=== PATIENT | male | born 1970 ===

== ENCOUNTER 2017-04-07 21:32 | Observation (INO) | payer OTHER ==
[2017-04-07 21:47] VITALS: RESP 18
[2017-04-07 22:55] LABS: BASO # 0.1 K/uL (0.0-0.2); BASO % 0.8 % (0.0-2.0); EOS # 0.4 K/uL (0.0-0.7); EOS % 4.6 % (0.0-4.0); HEMOGLOBIN 14.8 g/dL (12.0-18.0); LYMPH # 2.2 K/uL (1.0-4.3); LYMPH % 29.5 % (20.0-40.0); MEAN CELL VOLUME 85.7 fl (80.0-94.0); MEAN CORPUSCULAR HEMOGLOBIN 29.4 pg (27.0-31.0); MEAN CORPUSCULAR HGB CONC 34.3 g/dL (33.0-37.0); MEAN PLATELET VOLUME 8.7 fl (7.2-11.7); MONO # 0.7 K/uL (0.0-0.8); MONO % 8.7 % (0.0-10.0); NEUT # 4.3 K/uL (1.8-7.0); NEUT % 56.4 % (50.0-75.0); NRBC % 0.4 % (0.0-0.0); RBC 5.03 Mil/uL (4.40-5.90); RED CELL DISTRIBUTION WIDTH 14.1 % (11.5-14.5); WHITE BLOOD COUNT 7.6 K/uL (4.8-10.8)
--- NOTE | 2017-04-07 23:05 | ED PDOC ---
HPI: Chest Pain Time Seen by Provider: 04/07/17 22:00 Chief Complaint (Nursing): Chest Pain Chief Complaint (Provider): Chest Pain History Per: Patient History/Exam Limitations: no limitations Onset/Duration Of Symptoms: Sudden Onset Current Symptoms Are (Timing): Better Quality: Other (constant) Associated Symptoms: Other (left arm pain) Additional Complaint(s): 47 y/o male presents to the ED complaining of chest pain that started suddenly about an hour ago while the patient was sitting. Pain is constant and is in the middle of the chest, associated with left arm pain. Patient notes that he had a similar episode once long time ago. Denies Shortness of breath, diarrhea, nausea , vomiting, fever, diaphoresis, palpitations, syncope, cough or any further medical complaints. PMD: Karsten Parkinson MD Past Medical History Reviewed: Historical Data, Nursing Documentation, Vital Signs Vital Signs: Last Vital Signs Temp 98.2 F 04/08/17 16:05 Pulse 67 04/08/17 16:05 Resp 18 04/08/17 16:05 BP 132/75 04/08/17 16:05 Pulse Ox 97 04/08/17 16:05 - Medical History PMH: No Chronic Diseases - Surgical History Surgical History: No Surg Hx - Family History Family History: States: Other Other Family History: Heart Disease - Social History Current smoker - smoking cessation education provided: No Alcohol: None Drugs: Denies - Home Medications Home Medications: Ambulatory Orders Medication Instructions Recorded No Known Home Med 04/08/17 - Allergies Allergies/Adverse Reactions: Allergies Allergy/AdvReac Type Severity Reaction Status Date / Time No Known Allergies Allergy Verified 04/07/17 21:43 CORBY Risk Score for UA/NSTEMI - CORBY Risk Score Age > 64: NO 3 or more CAD Risk Factors: NO Known CAD (Stenosis greater than 50%): NO Aspirin use in past 7 days: NO Severe Angina: YES EKG ST changes greater than 0.5mm: NO Positive Cardiac Marker: NO CORBY Score: 1 Risk %: 5% Wells Criteria for PE - Wells Criteria for Pulmonary Embolism Clinical Signs and Symptoms of DVT: No P.E is #1 Diagnosis, or Equally Likely: No Heart Rate >100: No Immobilization at least 3 days;Surgery previous 4 weeks: No Previous, objectively diagnosed PE or DVT: No Hemoptysis: No Malignancy w/treatment within 6 months, or palliative: No Total Score: 0 Review of Systems ROS Statement: Except As Marked, All Systems Reviewed And Found Negative (As per HPI, otherwise negative) Constitutional: Negative for: Fever, Other (Diaphoresis) Cardiovascular: Positive for: Chest Pain (Pain is in the middle of the chest and is constant, associated with left arm pain.). Negative for: Palpitations Respiratory: Negative for: Cough, Shortness of Breath Gastrointestinal: Negative for: Nausea, Vomiting, Diarrhea Neurological: Negative for: Other (syncope) Physical Exam - Reviewed Nursing Documentation Reviewed: Yes Vital Signs Reviewed: Yes - Physical Exam Appears: Positive for: Well, Non-toxic, No Acute Distress Head Exam: Positive for: ATRAUMATIC, NORMAL INSPECTION, NORMOCEPHALIC Skin: Positive for: Normal Color, Warm, Dry Eye Exam: Positive for: EOMI, Normal appearance, PERRL ENT: Positive for: Normal ENT Inspection Neck: Positive for: Normal, Painless ROM, Supple Cardiovascular/Chest: Positive for: Regular Rate, Rhythm. Negative for: Murmur Respiratory: Positive for: Normal Breath Sounds. Negative for: Accessory Muscle Use, Respiratory Distress Gastrointestinal/Abdominal: Positive for: Normal Exam, Bowel Sounds, Soft. Negative for: Tenderness Back: Positive for: Normal Inspection. Negative for: L CVA Tenderness, R CVA Tenderness, Other (Midline tenderness) Extremity: Positive for: Normal ROM. Negative for: Pedal Edema, Deformity Neurologic/Psych: Positive for: Alert, Oriented (x3). Negative for: Motor/ Sensory Deficits - Laboratory Results Result Diagrams: 04/07/17 22:40 04/07/17 22:40 - ECG ECG Rhythm: Positive for: Normal QRS, Sinus Rhythm (Normal). Negative for: ST/ T Changes Rate: 76 O2 Sat by Pulse Oximetry: 96 (RA) Pulse Ox Interpretation: Normal - Radiology X-Ray: Interpreted by Me, Viewed By Me X-Ray Interpretation: No Acute Disease Medical Decision Making Medical Decision Making: Time: 22:27 Initial Impression: chest pain Differential including but not limited to ACS Plan: EKG BNP BMP Troponin I CBC w/ differential Chest x-ray Aspirin 325mg PO Nitroglycerin 0.4mg SL Selling Manager cont. Reevaluation Scribe Attestation: Documented by Billy Earl acting as a scribe for Holly Arcos MD. Scribe Attestation: All medical record entries made by the Scribe were at my direction and personally dictated by me. I have reviewed the chart and agree that the record accurately reflects my personal performance of the history, physical exam, medical decision making, and the department course for this patient. I have also personally directed, reviewed, and agree with the discharge instructions and disposition. Disposition - Clinical Impression Clinical Impression: Chest pain - Patient ED Disposition Is Patient to be Admitted: Yes Discussed With DrLoan: Salvatore Melchor Doctor Will See Patient In The: ED Counseled Patient/Family Regarding: Studies Performed, Diagnosis - Disposition Disposition Time: 23:37 Condition: FAIR - Pt Status Changed To: Hospital Disposition Of: Observation - POA Present On Arrival: None
[2017-04-07 23:07] LABS: BLOOD UREA NITROGEN 19 mg/dl (9-20); CALCIUM 9.5 mg/dL (8.4-10.2); GFR AFRICAN-AMERICAN > 60; GFR NON-AFRICAN AMERICAN > 60
[2017-04-07 23:19] LABS: B-TYPE NATRIURETIC PEPTIDE 23.3 pg/ml (0-450)
--- NOTE | 2017-04-07 23:41 | CP.PCM.HP ---
History of Present Illness - History of Present Illness History of Present Illness: PMD: aKrsten Parkinson MD Chief complaint: Chest pain The patient was seen and examined in theED HPI: This is a 47 years old male with no significant past medical hx, comes with one hour, sudden unset of continuous, sharp retrosternal chest pain beginning at rest, radiating to the left shoulder and left upper extremity and to the right mid back. The intensity decreased here in the ED after taking Sublingual NTG. This produced headache. No diaphoresis, SOB, palpitation, coughing nor fever. PMH: No Chronic Disease PSH: No past Surgeries SH: No illegal drug use; Occasional Alcohol; Never Smoked; Live with family; works in [employer] FH: Significantly for Father with HTN; Kidney failure and weak heart Allergies: NKDA Medication: Denies Present on Admission - Present on Admission Any Indicators Present on Admission: No History of DVT/PE: No History of Uncontrolled Diabetes: No Urinary Catheter: No Decubitus Ulcer Present: No Review of Systems - Constitutional Constitutional: absent: Anorexia, Fever, Headache, Lethargy - EENT Eyes: Requires Corrective Lenses. absent: Diplopia, Floaters, Photophobia, Sees Flashes Ears: absent: Decreased Hearing, Ear Discharge, Ear Pain, Tinnitus Nose/Mouth/Throat: absent: Epistaxis, Nasal Congestion, Nasal Discharge, Sinus Pain, Sinus Pressure - Cardiovascular Cardiovascular: Chest Pain at Rest. absent: Dyspnea, Edema, Orthopnea, Palpitations - Respiratory Respiratory: absent: Cough, Dyspnea, Wheezing, Stridor - Gastrointestinal Gastrointestinal: Nausea. absent: Constipation, Diarrhea, Vomiting - Genitourinary Genitourinary: absent: Dysuria, Flank Pain, Urinary Frequency - Musculoskeletal Musculoskeletal: absent: Abnormal Gait, Arthralgias, Back Pain - Integumentary Integumentary: absent: Pruritus, Rash, Skin Ulcer, Sores, Striae, Swelling - Neurological Neurological: absent: Confusion, Dizziness, Numbness, Focal Weakness, Weakness - Psychiatric Psychiatric: absent: Anxiety, Depression, Panic Attacks - Endocrine Endocrine: absent: Palpitations, Polydipsia, Polyphagia, Polyuria - Hematologic/Lymphatic Hematologic: absent: Easy Bleeding, Easy Bruising Past Patient History - Past Medical History & Family History Past Medical History?: No - Past Social History Smoking Status: Never Smoked Chewing Tobacco Use: No Cigar Use: No Alcohol: Occasional Drugs: Denies Home Situation {Lives}: With Family - CARDIAC Hx Cardiac Disorders: No - PULMONARY Hx Respiratory Disorders: No - NEUROLOGICAL Hx Neurological Disorder: No - HEENT Hx HEENT Problems: No - RENAL Hx Chronic Kidney Disease: No - ENDOCRINE/METABOLIC Hx Endocrine Disorders: No - HEMATOLOGICAL/ONCOLOGICAL Hx Blood Disorders: No - INTEGUMENTARY Hx Dermatological Problems: No - MUSCULOSKELETAL/RHEUMATOLOGICAL Hx Musculoskeletal Disorders: No - GASTROINTESTINAL Hx Gastrointestinal Disorders: No - GENITOURINARY/GYNECOLOGICAL Hx Genitourinary Disorders: No - PSYCHIATRIC Hx Psychophysiologic Disorder: No Hx Substance Use: No - SURGICAL HISTORY Hx Surgeries: No - ANESTHESIA Hx Anesthesia: No Meds Allergies/Adverse Reactions: Allergies Allergy/AdvReac Type Severity Reaction Status Date / Time No Known Allergies Allergy Verified 04/07/17 21:43 Physical Exam - Constitutional Appears: No Acute Distress - Head Exam Head Exam: ATRAUMATIC, NORMAL INSPECTION, NORMOCEPHALIC - Eye Exam Eye Exam: EOMI, Normal appearance Pupil Exam: NORMAL ACCOMODATION, PERRL - ENT Exam ENT Exam: Mucous Membranes Moist, Normal Exam, Normal External Ear Exam, Normal Oropharynx - Neck Exam Neck exam: Positive for: Full Rom, Normal Inspection. Negative for: Lymphadenopathy, Tenderness - Respiratory Exam Respiratory Exam: Clear to Auscultation Bilateral. absent: Rales, Rhonchi, Wheezes - Cardiovascular Exam Cardiovascular Exam: REGULAR RHYTHM, RRR, +S1, +S2. absent: Gallop - GI/Abdominal Exam GI & Abdominal Exam: Normal Bowel Sounds, Soft. absent: Hypoactive Bowel Sounds , Mass, Tenderness - Rectal Exam Rectal Exam: Deferred - Extremities Exam Extremities exam: Positive for: full ROM, normal inspection. Negative for: calf tenderness, pedal edema - Back Exam Back exam: NORMAL INSPECTION. absent: CVA tenderness (L), CVA tenderness (R) - Neurological Exam Neurological exam: Alert, CN II-XII Intact, Oriented x3, Reflexes Normal - Psychiatric Exam Psychiatric exam: Normal Affect, Normal Mood - Skin Skin Exam: Dry, Normal Color, Warm Results - Vital Signs Recent Vital Signs: Last Vital Signs Temp 98.1 F 04/07/17 21:43 Pulse 76 04/07/17 23:22 Resp 18 04/07/17 21:43 BP 142/75 04/07/17 21:43 Pulse Ox 96 04/07/17 23:22 - Labs Result Diagrams: 04/07/17 22:40 04/07/17 22:40 Labs: Laboratory Results - last 24 hr 04/07/17 04/07/17 22:40 22:40 WBC 7.6 RBC 5.03 Hgb 14.8 Hct 43.1 MCV 85.7 MCH 29.4 MCHC 34.3 RDW 14.1 Plt Count 223 MPV 8.7 Neut % (Auto) 56.4 Lymph % (Auto) 29.5 [place] % (Auto) 8.7 Eos % (Auto) 4.6 H Baso % (Auto) 0.8 Neut # (Auto) 4.3 Lymph # (Auto) 2.2 [place] # (Auto) 0.7 Eos # (Auto) 0.4 Baso # (Auto) 0.1 Sodium 142 Potassium 3.6 Chloride 103 Carbon Dioxide 26 Anion Gap 17 BUN 19 Creatinine 0.9 Est GFR ( Amer) > 60 Est GFR (Non-Af Amer) > 60 Random Glucose 93 Calcium 9.5 Troponin I < 0.0120 NT-Pro-B Natriuret Pep 23.3 - EKG Data EKG comments: NSR 76/min - Imaging and Cardiology Chest x-ray Status: Image reviewed by me Additional comment: Mild Congestion Assessment & Plan - Assessment and Plan (Free Text) Assessment: #. Chest Pain Plan: 47 years old male with no significant past medical hx, comes with one hour, sudden unset of continuous, sharp retrosternal chest pain beginning at rest, radiating to the left shoulder and left upper extremity and to the right mid back. The intensity decreased here in the ED after taking Sublingual NTG. #. Chest pain r/o ACS vs Reflux esophagitis - Consult Cardiology Dr Julian - Serial Troponin - Serial EKG - ECHO for wall motion - Lipid panel - Pepcid - ASA - Morphine for Pain as NTG causes headache #. DVT Prophylaxis with Lovenox #. Code Status: Full - Date & Time Date: 04/07/17 Time: 23:41
[2017-04-08 08:50] LABS: HDL CHOLESTEROL 50 MG/DL (30-70)
[2017-04-08 08:57] LABS: PARTIAL THROMBOPLASTIN TIME 28.5 Seconds (25.6-37.1); PROTHROMBIN TIME 11.3 Seconds (9.8-13.1)
[2017-04-08 09:01] LABS: LDL CHOLESTEROL 112 mg/dL (0-129)
--- NOTE | 2017-04-08 09:03 | RAD ---
PROCEDURE: CHEST RADIOGRAPH, 1 VIEW HISTORY: chest pain COMPARISON: None available. FINDINGS: LUNGS: Clear. PLEURA: No pneumothorax or pleural fluid seen. CARDIOVASCULAR: Normal. OSSEOUS STRUCTURES: No significant abnormalities. VISUALIZED UPPER ABDOMEN: Normal. OTHER FINDINGS: None. IMPRESSION: No active disease.
[2017-04-08] MEDS: Enoxaparin 40 mg Syringe SC SCH (10:12)
--- NOTE | 2017-04-08 11:15 | CARD ---
APPROVED REPORT EKG Measurement Heart [id number] <Conclusion> Normal sinus rhythm Possible Left atrial enlargement Borderline ECG
--- NOTE | 2017-04-08 14:06 | CP.PCM.PN ---
Subjective - Date & Time of Evaluation Date of Evaluation: 04/08/17 Time of Evaluation: 12:30 - Subjective Subjective: Patient seen and examined bedside. Feeling better. Denies any chest pain or sOB at presenr. Hemodynamically stable, afebrile. No acute issues overnight trop x 2 negative Objective - Vital Signs/Intake and Output Vital Signs (last 24 hours): Temp Pulse Resp BP Pulse Ox 98.3 F 65 18 113/69 98 04/08/17 12:00 04/08/17 12:00 04/08/17 12:00 04/08/17 12:00 04/08/17 12:00 - Medications Medications: Current Medications Aspirin (Ecotrin) 81 mg PO DAILY [facility] Last Admin: 04/08/17 10:12 Dose: 81 mg Enoxaparin Sodium (Lovenox) 40 mg SC DAILY [facility] PRN Reason: Protocol Last Admin: 04/08/17 10:12 Dose: 40 mg Famotidine (Pepcid) 20 mg PO DAILY [facility] Last Admin: 04/08/17 10:14 Dose: Not Given Morphine Sulfate (Morphine) 2 mg IVP Q4 PRN PRN Reason: Pain, moderate (4-7) - Labs Labs: 04/07/17 22:40 04/07/17 22:40 PT 11.3 Seconds (9.8-13.1) 04/08/17 06:54 INR 1.0 (0.9-1.2) 04/08/17 06:54 APTT 28.5 Seconds (25.6-37.1) 04/08/17 06:54 - Constitutional Appears: Non-toxic, No Acute Distress - Head Exam Head Exam: ATRAUMATIC, NORMAL INSPECTION, NORMOCEPHALIC - Eye Exam Eye Exam: EOMI, Normal appearance, PERRL Pupil Exam: NORMAL ACCOMODATION - ENT Exam ENT Exam: Mucous Membranes Moist, Normal Exam - Neck Exam Neck Exam: Full ROM, Normal Inspection - Respiratory Exam Respiratory Exam: Clear to Ausculation Bilateral, NORMAL BREATHING PATTERN. absent: Rales, Rhonchi, Wheezes - Cardiovascular Exam Cardiovascular Exam: REGULAR RHYTHM, RRR, +S1, +S2. absent: JVD - GI/Abdominal Exam GI & Abdominal Exam: Soft, Normal Bowel Sounds. absent: Distended, Guarding, Tenderness, Rebound - Rectal Exam Rectal Exam: Deferred - Extremities Exam Extremities Exam: Full ROM, Normal Capillary Refill, Normal Inspection. absent : Calf Tenderness, Pedal Edema - Back Exam Back Exam: NORMAL INSPECTION - Neurological Exam Neurological Exam: Alert, Awake, CN II-XII Intact, Oriented x3 - Psychiatric Exam Psychiatric exam: Normal Affect, Normal Mood - Skin Skin Exam: Dry, Intact, Normal Color, Warm Assessment and Plan - Assessment and Plan (Free Text) Assessment: 47 year old male with no significant past medical hx, comes with one hour, sudden unset of continuous, sharp retrosternal chest pain beginning at rest, radiating to the left shoulder and left upper extremity and to the right mid back. The intensity decreased here in the ED after taking Sublingual NTG. Trop x 2 negative EKG showed no St-T wave changes Cardiology consulted and recommended echo stress trest 1. Chest pain r/o ACS vs Reflux esophagitis continue tele monitoring Trop x 2 negative F/u third Trop Cardiology Dr Julian consulted Echo stress test in AMl Continue Pepcid, ASa and NTG PRN 2. DVT Prophylaxis Lovenox
--- NOTE | 2017-04-09 00:47 | CON ---
CARDIOLOGY CONSULTATION DATE: HISTORY OF PRESENT ILLNESS: The patient is a 47-year-old male who has no significant past medical history except strong family history of coronary artery disease. His father had cardiac issues in his 40s. The patient presents with a chest pain. The patient stated has he felt suddenly sharp chest pain, radiating to the left arm with left arm numbness that was relieved after his arrival to the Emergency Room and after administration of nitroglycerin. The patient had similar scenario in 05/2014 and was admitted overnight, but no cardiac workup was done except for an EKG. The patient denies any chest pain since his arrival to the telemetry. No reported arrhythmia. SOCIAL HISTORY: The patient is nonsmoker. He drinks occasionally. He is and has a daughter. 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 MEDICATIONS: Aspirin 81 mg once a day, Lovenox 40 mg subcutaneously once a day, morphine sulfate 20 mg intravenously q.4 hours p.r.n. and Pepcid 20 mg daily. REVIEW OF SYSTEMS: No nausea or vomiting. No fever or chills. PHYSICAL EXAMINATION GENERAL: The patient is middle-aged male, who does not appear to be in acute distress. VITAL SIGNS: Blood pressure 142/68, heart rate 63, temperature 98.1 and respirations 18. HEENT: Normocephalic. NECK: No JVD. CHEST: Clear. HEART: S1 and S2 regular. ABDOMEN: Soft. EXTREMITIES: No edema. LABORATORY DATA: PT, INR and PTT are within normal limits. SMA-7 is entirely within normal limits. Two sets of troponins are negative. Lipid profile is within normal limits. Hemoglobin and hematocrit, white count and platelet count are within normal limits. EKG reveals sinus rhythm, possible left atrial enlargement, heart rate 76 beats per minute. Chest x-ray was unremarkable. ASSESSMENT: 1. Chest pain, myocardial infarction ruled out. 2. Rule out pulmonary infarction. 3. Abnormal EKG with left atrial enlargement. RECOMMENDATIONS: Case was discussed with , the primary hospitalist. Continue aspirin 81 mg once a day, subcutaneous Lovenox 40 mg once a day. Obtain urine for drug screen. Echocardiogram the patient for Myoview stress test. Obtain serial d-dimer. Nicolas Julian MD
[2017-04-09 04:01] LABS: BARBITURATES, UR NEGATIVE (NEGATIVE); BENZODIAZEPINES, UR NEGATIVE (NEGATIVE); OPIATES, UR NEGATIVE (NEGATIVE); PHENCYCLIDINE, UR NEGATIVE (NEGATIVE)
[2017-04-09 08:37] VITALS: O2SAT 95
[2017-04-09] MEDS: Enoxaparin 40 mg Syringe SC SCH (11:24)
[2017-04-09 11:58] VITALS: BP 116/72; PULSE 61; TEMP 98.2
--- NOTE | 2017-04-09 12:10 | CARD ---
APPROVED REPORT EXAM: Two-dimensional and M-mode echocardiogram with Doppler and color Doppler. Other Information Quality : GoodRhythm : NSR INDICATION Chest Pain Echo Enhancing Agent Indication: Rule Out Septal Defect Agent/Amount Used: Agitated Saline 2D DIMENSIONS IVSd1.01 (0.7-1.1cm)LVDd4.16 (3.9-5.9cm) LVOT Diameter2.15 (1.8-2.4cm)PWd1.04 (0.7-1.1cm) IVSs1.12 (0.8-1.2cm)LVDs3.11 (2.5-4.0cm) FS (%) 25.3 %PWs1.22 (0.8-1.2cm) M-Mode DIMENSIONS Left Atrium (MM)3.59 (2.5-4.0cm)IVSd0.65 (0.7-1.1cm) Aortic Root2.94 (2.2-3.7cm)LVDd5.56 (4.0-5.6cm) Aortic Cusp Exc.2.15 (1.5-2.0cm)PWd0.97 (0.7-1.1cm) IVSs1.06 cmFS (%) 49 % LVDs2.82 (2.0-3.8cm)PWs1.38 cm Aortic Valve AoV Peak Yxmmcquf167.3cm/sAoV VTI21.0cmAO Peak GR.5mmHg AO Mean GR.3mmHg Mitral Valve MV E Zakexgrt27.7cm/sMV DECEL [id number] A Tssfehwg12.3cm/s MV IGI84zbT/A ratio0.9MVA (PHT)2.54cm2 TDI Lateral E' Peak V17.93cm/sMedial E' Peak V9.61cm/sE/Lateral E'2.3 E/Medial E'4.2 Pulmonary Valve PV Peak Pdgxgqto573.7cm/s LEFT VENTRICLE The left ventricle is normal size. The left ventricular function is normal. The left ventricular ejection fraction is within the normal range. The Ejection Fraction is 60-65%. There is normal LV segmental wall motion. The left ventricular diastolic function is normal. There is no ventricular septal defect visualized. RIGHT VENTRICLE The right ventricle is normal size. The right ventricular systolic function is normal. ATRIA The left atrium size is normal. The right atrium size is normal. The interatrial septum is intact with no evidence for an atrial septal defect. AORTIC VALVE The aortic valve is normal in structure. No aortic regurgitation is present. There is no aortic valvular stenosis. MITRAL VALVE The mitral valve is normal in structure. There is no mitral valve stenosis. There is no mitral valve regurgitation noted. TRICUSPID VALVE The tricuspid valve is normal in structure. There is no tricuspid valve regurgitation noted. PULMONIC VALVE The pulmonary valve is normal in structure. There is no pulmonic valvular regurgitation. GREAT VESSELS The aortic root is normal in size. The IVC is normal in size and collapses >50% with inspiration. PERICARDIAL EFFUSION The pericardium appears normal. <Conclusion> The left ventricle is normal size. The left ventricular function is normal. The left ventricular ejection fraction is within the normal range. The Ejection Fraction is 60-65%.
--- NOTE | 2017-04-09 12:42 | CP.PCM.DIS ---
Provider - Provider Date of Admission: 04/07/17 23:27 Attending physician: Salvatore Melchor Primary care physician: None Consults: cardiology consult Time Spent in preparation of Discharge (in minutes): 15 Hospital Course - Lab Results Lab Results: Most Recent Lab Values WBC 7.6 K/uL (4.8-10.8) 04/07/17 22:40 RBC 5.03 Mil/uL (4.40-5.90) 04/07/17 22:40 Hgb 14.8 g/dL (12.0-18.0) 04/07/17 22:40 Hct 43.1 % (35.0-51.0) 04/07/17 22:40 MCV 85.7 fl (80.0-94.0) 04/07/17 22:40 MCH 29.4 pg (27.0-31.0) 04/07/17 22:40 MCHC 34.3 g/dL (33.0-37.0) 04/07/17 22:40 RDW 14.1 % (11.5-14.5) 04/07/17 22:40 Plt Count 223 K/uL (130-400) 04/07/17 22:40 MPV 8.7 fl (7.2-11.7) 04/07/17 22:40 Neut % (Auto) 56.4 % (50.0-75.0) 04/07/17 22:40 Lymph % (Auto) 29.5 % (20.0-40.0) 04/07/17 22:40 Todd % (Auto) 8.7 % (0.0-10.0) 04/07/17 22:40 Eos % (Auto) 4.6 % (0.0-4.0) H 04/07/17 22:40 Baso % (Auto) 0.8 % (0.0-2.0) 04/07/17 22:40 Neut # (Auto) 4.3 K/uL (1.8-7.0) 04/07/17 22:40 Lymph # (Auto) 2.2 K/uL (1.0-4.3) 04/07/17 22:40 Todd # (Auto) 0.7 K/uL (0.0-0.8) 04/07/17 22:40 Eos # (Auto) 0.4 K/uL (0.0-0.7) 04/07/17 22:40 Baso # (Auto) 0.1 K/uL (0.0-0.2) 04/07/17 22:40 PT 11.3 Seconds (9.8-13.1) 04/08/17 06:54 INR 1.0 (0.9-1.2) 04/08/17 06:54 APTT 28.5 Seconds (25.6-37.1) 04/08/17 06:54 D-Dimer, Quantitative 114 ng/mlDDU (0-230) 04/08/17 13:20 Sodium 142 mmol/l (132-148) 04/07/17 22:40 Potassium 3.6 MMOL/L (3.6-5.0) 04/07/17 22:40 Chloride 103 mmol/L (98-107) 04/07/17 22:40 Carbon Dioxide 26 mmol/L (22-30) 04/07/17 22:40 Anion Gap 17 (10-20) 04/07/17 22:40 BUN 19 mg/dl (9-20) 04/07/17 22:40 Creatinine 0.9 mg/dl (0.8-1.5) 04/07/17 22:40 Est GFR ( Amer) > 60 04/07/17 22:40 Est GFR (Non-Af Amer) > 60 04/07/17 22:40 Random Glucose 93 mg/dL (75-110) 04/07/17 22:40 Calcium 9.5 mg/dL (8.4-10.2) 04/07/17 22:40 Troponin I < 0.0120 ng/mL (0.00-0.120) 04/08/17 20:30 NT-Pro-B Natriuret Pep 23.3 pg/ml (0-450) 04/07/17 22:40 Triglycerides 130 mg/DL (0-149) 04/08/17 06:54 Cholesterol 181 mg/dL (0-199) 04/08/17 06:54 LDL Cholesterol Direct 112 mg/dL (0-129) 04/08/17 06:54 HDL Cholesterol 50 MG/DL (30-70) 04/08/17 06:54 Urine Opiates Screen Negative (NEGATIVE) 04/09/17 01:19 Urine Methadone Screen Negative (NEGATIVE) 04/09/17 01:19 Ur Barbiturates Screen Negative (NEGATIVE) 04/09/17 01:19 Ur Phencyclidine Scrn Negative (NEGATIVE) 04/09/17 01:19 Ur Amphetamines Screen Negative (NEGATIVE) 04/09/17 01:19 U Benzodiazepines Scrn Negative (NEGATIVE) 04/09/17 01:19 U Oth Cocaine Metabols Negative (NEGATIVE) 04/09/17 01:19 U Cannabinoids Screen Negative (NEGATIVE) 04/09/17 01:19 - Hospital Course Hospital Course: 47 year old male with no significant past medical hx came with one hour of sudden onset of continuous, sharp retrosternal chest pain beginning at rest, radiating to the left shoulder and left upper extremity and to the right mid back. The intensity decreased in the ED after taking Sublingual NTG. patient has family history of heart disease Trop x 3 negative EKG showed no St-T wave changes Cardiology consulted and recommended myocardial perfusion stress test. Myocardial perfusion test showed normal stress test with no ischemia or EKG changes.patient is hemodynamically stable, with no chest pain ACS ruled out Will d/c patient home Follow upw ith PMD or CFH 1.Atypical Chest pain 2 ACS ruled out Discharge Exam - Head Exam Head Exam: ATRAUMATIC, NORMAL INSPECTION, NORMOCEPHALIC - Eye Exam Eye Exam: EOMI, Normal appearance, PERRL Pupil Exam: NORMAL ACCOMODATION - ENT Exam ENT Exam: Mucous Membranes Moist, Normal Exam - Neck Exam Neck exam: Full Rom, Normal Inspection - Respiratory Exam Respiratory Exam: Clear to PA & Lateral, NORMAL BREATHING PATTERN. absent: Rales, Rhonchi, Wheezes - Cardiovascular Exam Cardiovascular Exam: REGULAR RHYTHM, RRR, +S1, +S2. absent: JVD - GI/Abdominal Exam GI & Abdominal Exam: Normal Bowel Sounds, Soft. absent: Distended, Guarding, Rebound, Tenderness - Rectal Exam Rectal Exam: Deferred - Extremities Exam Extremities exam: normal capillary refill, normal inspection, pedal pulses present - Back Exam Back exam: NORMAL INSPECTION - Neurological Exam Neurological exam: Alert, CN II-XII Intact, Oriented x3, Reflexes Normal - Psychiatric Exam Psychiatric exam: Normal Affect, Normal Mood - Skin Skin Exam: Dry, Intact, Normal Color, Warm Discharge Plan - Follow Up Plan Condition: STABLE Disposition: HOME/ ROUTINE Patient education suggested?: Yes Instructions: Chest Pain (DC) Additional Instructions: follow up with your primary MD 7-10 days. Referrals: Karsten Parkinson MD [Medical Doctor] -
--- NOTE | 2017-04-09 13:06 | CARD ---
APPROVED REPORT Protocol: NILESH Test Type: Stress Nuclear Medications: ASA 81mg, Enoxaparin 40mg, Famotidine 20mg, Morphine 2mg prn [place] 3,7,9, Vit E. Multiple Vitamin. Medical History: Family Hx. Target HR: 172 bpm Resting ECG: normal Resting Heart Rate: 70 bpm Resting Blood Pressure: 116/72mmHg submaximum (85%): 146 bpm TEST SUMMARY [id number]:[id number]/72.0. [id number]/72.0. PRETESTHYPERV.00:[id number]/72.0. PRETESTWARM-UP26:[id number]/80.0. EXERCISESTAGE 103:[id number]/80.0. EXERCISESTAGE 203:[id number]/80.0. EXERCISESTAGE 303:[id number]/80.0. EXERCISESTAGE 403:[id number]/80.0. [id number]:[id number]/80.0. POST EXERCISE Reason for Termination: complete the study Target HR: No Max HR: 155 bpm 91% of Maximum Predicted HR: 172 bpm Exercise duration: 12:00 min:sec, 4 Stage Exercise capacity: 13.4METs Max Blood Pressure: 160/80mmHg Blood Pressure response to exercise: normal resting BP - appropriate response Heart Rate response to exercise: appropriate Chest Pain: No, none Angina index: 0 Arrhythmia: No, none ST Change: No, none Deviation: 0 mm Clinical Indications Under Appropriate Use Criteria chest pain Stress EKG Interpretation Normal exercise stress. EXAM: Myocardial Perfusion REST/STRESS Image QualityGood Imaging Protocol The imaging protocol used to acquire images was Rest Tc-99m/stress Tc-99m 1 day Rest Spect myocardial perfusion imaging was performed in supine position 60 minutes following the injection of 10 mCi of Tc-99 Myoview. Time of rest injection: 7:52 Time of rest imagin:00 At peak stress, the patient was injected intravenously with 30mCi of Tc-99 tetrofosmin after an infusion time of minutes and seconds. Time of stress injection: 10:00 Time of stress imagin:45 Gated Stress Spect was performed 45 minutes after intravenous Tc-99 Myoview injection. The images were gated to evaluate regional wall motion and calculate ventricular ejection fraction. NUCLEAR IMAGE INTERPRETATION The rest and stress images show normal perfusion, normal contraction and thickening. LV Perfusion The perfusion of the left ventricle was normal on the standard three tomographic images and the bullseye plot images. Wall Motion normal LVEF of 74% CONCLUSION 1. The patient is a 47 year old male who was admiited to the hospital for chest pain. The EKGS and troponins were normal and he is now referred for a nuclear stress test. He is on aspirin an lovenox. Using a standard Nilesh protocol, the patient exercised for 12 minutes(completing Stage 4) at which time the test was stopped as he reached his target heart rate. He did not have any chest pain. The resting heart rate was 70 beats per minute and reached 157 beats per minute which was 91% of the MPHR. The resting blood pressure was 120/80 and increased to 160/80 with exercise. The patient reached a workload of 13.4 mets. The rhythm was sinus and there weren't any significant ST segment depressions with exercise. The nuclear scans showed normal perfusion of the left ventricle..The LVEF on the gated study was 74%. 2. Impression: Normal exercise stress test without any chest pain or ischemic EKG changes at 91% of the MPHR. Normal blood pressure response to exercise. Very good work capacity. Normal perfusion on the nuclear scans. LVEF of 74%. Recommendation medical treatment
--- NOTE | 2017-04-09 13:30 | PN ---
DATE: SUBJECTIVE: The patient is chest pain free and no reported ventricular arrhythmia. PHYSICAL EXAMINATION: VITAL SIGNS: Blood pressure 116/73, heart rate 60, temperature 97.8, respirations 18. HEENT: Normocephalic. CHEST: Clear. HEART: S1 and S2 regular. ABDOMEN: Soft. EXTREMITIES: No edema. ASSESSMENT: Chest pain, myocardial infarction is ruled out. RECOMMENDATIONS: Continue current aspirin and subcutaneous Lovenox therapy. I will follow up both echo and Myoview stress test results. Nicolas Julian MD
== END 2017-04-09 15:30 | disposition home or self-care (01) ==
LOC: H.ER 21:32 → H.ERHOLD 23:27 → H.TEL 04-08 04:07
PROVIDERS: ADMIT Internal Medicine; ATTEND Internal Medicine
DX: R07.89 Other chest pain (principal); Z79.82 Long term (current) use of aspirin; Z82.49 Family history of ischemic heart disease and other diseases of the circulatory system; M79.602 Pain in left arm; R94.31 Abnormal electrocardiogram [ECG] [EKG]
CPT/HCPCS: 36415; 71045; 78452; 80048; 80061; 80324; 80345; 80346; 80349; 80353; 80358; 80361; 83880; 83992; 84484; 85025; 85378; 85610; 85730; 93005; 93017; 93306; 99285; A9502; G0378; J1650